=== PATIENT | female | born 1955 | race Caucasian/White ===

== ENCOUNTER 2021-04-26 09:20 | Emergency (ER) | payer MEDICAID, SELFPAY ==
[2021-04-26 09:23] VITALS: PULSE 80; RESP 19; TEMP 37.1; O2SAT 94; BMI 32.8
--- NOTE | 2021-04-26 09:42 | ED_ITS ---
HPI - Extremity Problem General: Chief complaint: Extremity Injury, Upper Stated complaint: FALL ARM PAIN Time Seen by Provider: 04/26/21 09:34 Source: patient Mode of arrival: EMS Limitations: no limitations History of Present Illness: HPI Narrative: Patient states while waiting to check out at [facility] her right foot slipped, causing her to fall injuring her right arm. Unable to move arm due to pain MD Complaint: extremity pain and joint pain Onset (ago): minute(s) Pain Consistency: constant Location: right Severity scale (1-10): 6 Quality: sharp Radiation: none Relieving factors: nothing Exacerbating factors: exertion and palpation Associated symptoms: Reports no associated symptoms Context: immobilization Review of Systems General: Reports: 10 or more systems reviewed and unremarkable except in HPI and below Musc: Reports: extremity pain, joint pain and limited range of motion Physical Exam Const: COMMON NORMALS: no acute distress GENERAL APPEARANCE: cooperative, comfortable and well kempt HENMT: COMMON NORMALS: normocephalic and atraumatic HEAD & SCALP: normal to inspection, normocephalic and atraumatic Eye: COMMON NORMALS: Equal, round and reactive pupils present GENERAL EYE: appearance normal, both eyes and all related structures PUPIL: Yes Equal, round and reactive pupils present Neck/C-Spine: COMMON NORMALS: full ROM, no lymphadenopathy and no JVD Lymph: LYMPHATIC: no lymphadenopathy noted Resp: COMMON NORMALS: normal respiratory effort, No retractions, No use of accessory muscles and clear to auscultation bilaterally EFFORT & INSPECTION: Yes able to speak in complete sentences AUSCULTATION: clear to auscultation bilaterally Cardio: COMMON NORMALS: no JVD, regular rate, S1 normal heart sound present and S2 normal heart sound present RATE: regular rate HEART SOUNDS: S1 no rmal heart sound present and S2 normal heart sound present GI: COMMON NORMALS: Normal to inspection, nondistended, normoactive bowel sounds present Extremity: GENERAL: Yes normal exam except as noted RIGHT UPPER EXTREMITY: Yes shoulder joint (Unable to move due to pain) Right shoulder: Yes Right shoulder joint ROM exam and Yes Right shoulder joint neurovascular exam (intact) and Yes elbow joint Right elbow: Yes ROM (Tenderness) and Yes neurovascular exam (intact) Psych: APPEARANCE: Yes well kempt Skin: COMMON NORMALS: no rashes or lesions noted GENERAL SKIN EXAM: no rashes or lesions noted Course ED course: Arrived via EMS, recently shopping at [employer] while waiting for checkout slipped falling on right shoulder causing pain to the humerus, shoulder, and elbow. Full range of motion of wrist without pain Reevaluation(s): Reevaluation #1: Discussed case with Dr. Spears patient to follow-up in office place sling until evaluated in office Time: 11:26 Vital Signs: Vital signs: Vital Signs Temperature 98.7 F 04/26/21 09:23 Pulse Rate 80 04/26/21 09:23 Respiratory Rate 19 H 04/26/21 09:23 Pulse Oximetry 94 04/26/21 09:23 MDM - Extremity (Nontraumatic) Imaging Data^: Xray Ortho: Radiologist's impression: Niki Ortiz[address] [place] [address] [place], [place] [address] ReportSigned Patient: Yen Ansari #: [id number]: 1955cct#:[id number]/Sex: 66 / FADM Date: 04/26/21Loc: ERRoom/Bed:Attending Dr: Ordering Provider/Ordering MD: Candice Gayle Date of Service: 04/26/21 Procedure(s): [place] [address] Accession Number(s): [id number] Report Number: [id number] PROCEDURE INFORMATION: Exam: XR Right Humerus Exam date and time: 04/26/2021 9:44 AM Age: 66 years old Clinical indication: Injury or trauma; Fall; Blunt trauma (contusions or hematomas); Arm, upper; Right TECHNIQUE: Imaging protocol: XR Right humerus. Views: 2 or more views. Total images: 2 COMPARISON: CR (CHEST, ) 04/26/2021 10:10 AM FINDINGS: Bones/joints: Comminuted fracture of the proximal right humerus felt to be involving the surgical neck and greater tuberosity. No additional fracture, subluxation, or dislocation detected. Lungs: Small dense nodule in the right mid lung felt to represent a granuloma. Soft tissues: Normal. XR/[place] [id number] IMPRESSION: Comminuted fracture of the proximal right humerus felt to be involving the surgical neck and greater tuberosity. Radiation Dose CTDIVOL = (mGy): DLP = (mGy-cm) Dictated By:Kirk Sapp MDSigned By:Kirk Sapp MDSigned Date/Time:04/26/21 1115DD/ 0944 Discharge Plan Discharge Patient Disposition: Home Clinical Impression: Fracture, humerus, head Qualifiers: Encounter type: initial encounter Fracture type: closed Laterality: right Qualified Code(s): S42.291A - Other displaced fracture of upper end of right humerus, initial encounter for closed fracture Condition: Stable Prescriptions: New hydrocodone-acetaminophen 5-325 mg tablet 1 tab PO Q4H 5 Days Qty: 30 RF: 0 Discharge Orders: Discharge ED (Routine); Ordered 04/26/21 Ordered By: Candice Gayle Referrals: Marine Palomares MD [Primary Care Provider] - Armando Spears DO [Physician] - 1-3 days Discharge Diet: Usual diet Discharge Activity: Limit activity as instructed Patient Instructions: Opioid Safety Coding Level of Care Code ED Fabric Worker Foreman for Chg Fwd Exam Comprehensive
--- NOTE | 2021-04-26 09:44 | XRR_ITS ---
PROCEDURE INFORMATION: Exam: XR Right Elbow Exam date and time: 04/26/2021 9:44 AM Age: 66 years old Clinical indication: Injury or trauma; Fall; Blunt trauma (contusions or hematomas); Elbow; Right TECHNIQUE: Imaging protocol: XR Right elbow. Views: 3 or more views. Total images: 3 COMPARISON: CR (UP EXM, ) 04/26/2021 10:19 AM FINDINGS: Bones/joints: Moderate marginal osteophytes are noted. No acute fracture nor subluxation. No osseous erosion nor periosteal reaction. Soft tissues: Normal. XR/XR elbow RT min 3V* [id number] IMPRESSION: No acute osseous pathology. Radiation Dose CTDIVOL = (mGy): DLP = (mGy-cm)
--- NOTE | 2021-04-26 09:44 | XRR_ITS ---
PROCEDURE INFORMATION: Exam: XR Right Shoulder Exam date and time: 04/26/2021 9:44 AM Age: 66 years old Clinical indication: Injury or trauma; Fall; Blunt trauma (contusions or hematomas); Shoulder; Right TECHNIQUE: Imaging protocol: XR Right shoulder. Views: 2 or more views. Total images: 3 COMPARISON: No relevant prior studies available. FINDINGS: Bones/joints: Comminuted fracture of the proximal right humerus involving the surgical neck and greater tuberosity. No additional fracture, subluxation, or dislocation detected. Lungs: Nodular density in the right mid lung felt to represent a granuloma. Soft tissues: Normal. XR/XR shoulder RT min 2V* [id number] IMPRESSION: Comminuted fracture of the proximal right humerus involving the surgical neck and greater tuberosity. Radiation Dose CTDIVOL = (mGy): DLP = (mGy-cm)
--- NOTE | 2021-04-26 11:30 | XRR_ITS ---
PROCEDURE INFORMATION: Exam: XR Right Knee Exam date and time: 04/26/2021 11:30 AM Age: 66 years old Clinical indication: Injury or trauma; Fall; Blunt trauma; Knee; Right TECHNIQUE: Imaging protocol: XR Right knee. Views: 3 views. Total images: 3 COMPARISON: No relevant prior studies available. FINDINGS: Bones/joints: Nondisplaced fracture involving the proximal aspect of the right fibula. No additional fracture, subluxation, or dislocation detected. Soft tissues: Normal. XR/XR knee RT 3V* [id number] IMPRESSION: Nondisplaced fracture involving the proximal aspect of the right fibula. Radiation Dose CTDIVOL = (mGy): DLP = (mGy-cm)
[2021-04-26] MEDS: HYDROcodone-acetaminophen 5-325 mg Tablet 1 TAB PO (11:53)
[2021-04-26 12:05] VITALS: RESP 17; O2SAT 98
--- NOTE | 2021-04-26 13:49 | ED_ITS ---
HPI - Extremity Problem General: Chief complaint: Extremity Injury, Upper Stated complaint: FALL ARM PAIN Time Seen by Provider: 04/26/21 09:34 Source: patient Mode of arrival: EMS Limitations: no limitations History of Present Illness: Pain Consistency: constant Location: right Severity scale (1-10): 6 Quality: sharp Relieving factors: nothing Exacerbating factors: exertion and palpation Review of Systems General: Reports: 10 or more systems reviewed and unremarkable except in HPI and below Musc: Reports: joint pain and limited range of motion Physical Exam Const: COMMON NORMALS: no acute distress GENERAL APPEARANCE: cooperative, comfortable and well kempt HENMT: COMMON NORMALS: normocephalic and atraumatic HEAD & SCALP: normal to inspection, normocephalic and atraumatic Eye: COMMON NORMALS: Equal, round and reactive pupils present GENERAL EYE: appearance normal, both eyes and all related structures PUPIL: Yes Equal, round and reactive pupils present Neck/C-Spine: COMMON NORMALS: full ROM, no lymphadenopathy and no JVD Lymph: LYMPHATIC: no lymphadenopathy noted Resp: COMMON NORMALS: normal respiratory effort, No retractions, No use of accessory muscles and clear to auscultation bilaterally EFFORT & INSPECTION: Yes able to speak in complete sentences AUSCULTATION: clear to auscultation bilaterally Cardio: COMMON NORMALS: no JVD, regular rate, S1 normal heart sound present and S2 normal heart sound present RATE: regular rate HEART SOUNDS: S1 normal heart sound present and S2 normal heart sound present GI: COMMON NORMALS: Normal to inspection, nondistended, normoactive bowel sounds present Extremity: GENERAL: Yes normal exam except as noted RIGHT UPPER EXTREMITY: Yes shoulder joint (Unable to move related to injury from fall.) RIGHT LOWER EXTREMITY: Yes knee joint Right knee: Yes palpation (tenderness upon palpation.), Yes ROM (full) and Yes neurovascular exam (intact) Psych: APPEARANCE: Yes well kempt Skin: COMMON NORMALS: no rashes or lesions noted, no wounds and turgor normal GENERAL SKIN EXAM: no rashes or lesions noted and turgor normal Course Vital Signs: Vital signs: Vital Signs Temperature 98.7 F 04/26/21 09:23 Pulse Rate 80 04/26/21 09:23 Respiratory Rate 17 04/26/21 12:05 Pulse Oximetry 98 04/26/21 12:05 MDM - Extremity (Nontraumatic) MDM Narrative: Medical decision making narrative: Patient departed without receiving full evaluation from knee x-ray as she did not want to wait with her family any longer. Reviewed x-ray with patient family is bringing her back to be splinted for nondisplaced fracture involving proximal aspect of the right fibula patient is to be nonweightbearing as discussed. She will follow up with Dr. Spears next week Imaging Data^: Xray Ortho: Radiologist's impression: [address] [id number] ReportSigned Patient: Yen Ansari #: [id number]: 1955cct#:[id number]/Sex: 66 / FADM Date: 04/26/21Loc: ERRoom/Bed:Attending Dr: Ordering Provider/Ordering MD: Candice Gayle Date of Service: 04/26/21 Procedure(s): XR knee RT 3V* [id number] Accession Number(s): [id number] Report Number: [id number] PROCEDURE INFORMATION: Exam: XR Right Knee Exam date and time: 04/26/2021 11:30 AM Age: 66 years old Clinical indication: Injury or trauma; Fall; Blunt trauma; Knee; Right TECHNIQUE: Imaging protocol: XR Right knee. Views: 3 views. Total images: 3 COMPARISON: No relevant prior studies available. FINDINGS: Bones/joints: Nondisplaced fracture involving the proximal aspect of the right fibula. No additional fracture, subluxation, or dislocation detected. Soft tissues: Normal. XR/XR knee RT 3V* [id number] IMPRESSION: Nondisplaced fracture involving the proximal aspect of the right fibula. Radiation Dose CTDIVOL = (mGy): DLP = (mGy-cm) Dictated By:Kirk Sapp MDSigned By:Kirk Sapp MDSigned Date/Time:04/26/21 1159DD/ 1130 Discharge Plan Discharge Patient Disposition: Home Clinical Impression: Fracture, humerus, head Qualifiers: Encounter type: initial encounter Fracture type: closed Laterality: right Qualified Code(s): S42.291A - Other displaced fracture of upper end of right humerus, initial encounter for closed fracture Fracture, fibula Qualifiers: Encounter type: initial encounter Fibula location: proximal Fracture type: closed Laterality: right Condition: Stable Prescriptions: New hydrocodone-acetaminophen 5-325 mg tablet 1 tab PO Q4H 5 Days Qty: 30 RF: 0 Discharge Orders: Discharge ED (Routine); Ordered 04/26/21 Ordered By: Candice Gayle Referrals: Marine Palomares MD [Primary Care Provider] - Armando Spears DO [Physician] - 1-3 days Discharge Diet: Usual diet Discharge Activity: Limit activity as instructed Patient Instructions: Opioid Safety Coding Level of Care Code ED Eye Glass Frame Polisher for Chg Fwd Exam Comprehensive
--- NOTE | 2021-04-26 16:08 | PC.NURSE ---
Pt returned to ED d/t being discharged prior to having RLE X-ray, she returns for splinting d/t non-displaced fibular fx RLE. Posterior long leg splint applied. Order placed by Candice Gayle NP for home wheelchair, which was delivered to ED. This RN assisted pt and her to the car. Pt demonstrates understanding of use of wheelchair, not bearing weight on splinted leg, and prompt f/u with ortho.
--- NOTE | 2021-04-27 10:52 | DCPLANNER ---
regulatory process manager had message to schedule a follow up appointment for patient with ortho. regulatory process manager called the ortho clinic, spoke with Alyce, gave clinic patients information. regulatory process manager was told that patients information would be printed and reviewed. Clinic will call patient with appointment information.
--- NOTE | 2021-04-30 07:42 | DCPLANNER ---
Patient has a follow up appointment scheduled for , April 30, 2021 at 8:00 with MK Bird at [facility]. Clinic will call patient with appointment information.
--- NOTE | 2021-05-21 13:58 | DCPLANNER ---
Patient had a follow up appointment scheduled with ortho - patient did attend appointment.
== END 2021-04-26 12:07 | disposition home or self-care (01) ==
PROVIDERS: Emergency Provider Nurse Practitioner Family; PCP Internal Medicine
DX: S42.291A Other displaced fracture of upper end of right humerus, initial encounter for closed fracture (principal); S82.831A Other fracture of upper and lower end of right fibula, initial encounter for closed fracture; W01.0XXA Fall on same level from slipping, tripping and stumbling without subsequent striking against object, initial encounter; Y92.512 Supermarket, store or market as the place of occurrence of the external cause
CPT/HCPCS: 29505; 73030; 73060; 73080; 73562; 99283

== ENCOUNTER → 2021-04-30 08:04 | Outpatient (BNVA) | payer MEDICAID, SELFPAY | PROVIDERS: PCP Internal Medicine; Referring Provider Internal Medicine; Visit Provider Physician Assistant | DX: S42.291D Other displaced fracture of upper end of right humerus, subsequent encounter for fracture with routine healing (principal); M25.571 Pain in right ankle and joints of right foot; X58.XXXD Exposure to other specified factors, subsequent encounter | CPT/HCPCS: 73030; 73610 ==

== ENCOUNTER → 2021-06-02 13:38 | Outpatient (BNVA) | payer MEDICAID, SELFPAY | PROVIDERS: PCP Internal Medicine; Visit Provider Physician Assistant | DX: S82.491D Other fracture of shaft of right fibula, subsequent encounter for closed fracture with routine healing (principal); X58.XXXD Exposure to other specified factors, subsequent encounter | CPT/HCPCS: 73060; 73590 ==

== ENCOUNTER 2021-06-10 09:13 | Outpatient (RCR) | payer SELFPAY | END 2021-06-22 23:59 | disposition home or self-care (01) | LOC: SPT 09:13 | PROVIDERS: PCP Internal Medicine; Referring Provider Physician Assistant; Visit Provider Physician Assistant | DX: S42.201D Unspecified fracture of upper end of right humerus, subsequent encounter for fracture with routine healing (principal); X58.XXXD Exposure to other specified factors, subsequent encounter | CPT/HCPCS: 97110; 97162 ==

== ENCOUNTER 2021-06-23 06:00 | Outpatient (RCR) | payer SELFPAY | END 2021-07-10 23:00 | disposition home or self-care (01) | LOC: SPT 06:00 | PROVIDERS: PCP Internal Medicine; Referring Provider Physician Assistant; Visit Provider Physician Assistant | DX: S42.201D Unspecified fracture of upper end of right humerus, subsequent encounter for fracture with routine healing (principal); X58.XXXD Exposure to other specified factors, subsequent encounter | CPT/HCPCS: 97110 ==

== ENCOUNTER → 2021-07-02 09:40 | Outpatient (BNVA) | payer MEDICAID, SELFPAY | PROVIDERS: PCP Internal Medicine; Visit Provider Physician Assistant | DX: S82.831A Other fracture of upper and lower end of right fibula, initial encounter for closed fracture (principal); S42.201A Unspecified fracture of upper end of right humerus, initial encounter for closed fracture; X58.XXXA Exposure to other specified factors, initial encounter | CPT/HCPCS: 73060 ==

== ENCOUNTER 2021-12-27 08:37 | Emergency (ER) | payer MEDICAID, SELFPAY ==
[2021-12-27 08:42] VITALS: BP 207/135; PULSE 77; RESP 16; TEMP 36.8; O2SAT 98; BMI 33.6
--- NOTE | 2021-12-27 08:53 | ED_ITS ---
Documented by User: MK Chambers 12/27/21 10:30 HPI - General Adult General: Chief complaint: General Medical Stated complaint: high blood pressure Time Seen by Provider: 12/27/21 08:38 Source: patient Mode of arrival: ambulatory Limitations: no limitations History of Present Illness: Patient is a nice 66-year-old female who presents to ED today with a complaint of elevated blood pressures. Patient states she checked her blood pressure randomly at [facility] and found it was 210 systolic. She states she was checking her blood pressure again this morning and states it was 215/120. Patient states she does not routinely check her blood pressures at home so does not know what a normal pressure is for her. She does take metoprolol 50 mg twice daily and lisinopril-HCTZ 20mg/12.5mg daily for blood pressure. Her PCP is Dr. Palomares. Patient is not complaining of visual changes, headache, chest pain, shortness of breath, difficulty breathing, palpitations, or any other complaints at this time. She states she feels like her normal self. Onset (ago): day(s) (noticed yesterday) Associated symptoms: Deny chest pain, dyspnea, headache(s), malaise, nausea, rash, palpitations, syncope or vomiting Treatments prior to arrival: none Review of Systems Const: Denies: fever(s), chills, body aches, fatigue or malaise Eyes: Denies: change in vision, blurry vision, floaters or seeing flashes Card: Denies: chest pain, palpitations, irregular heart rhythm, edema, swelling of feet/ankles, lightheadedness, syncope, pre-syncope, dyspnea on exertion, orthopnea, leg pain with exertion or acrocyanosis Resp: Denies: dyspnea GI: Denies: abdominal pain, nausea or vomiting : Denies: flank pain, oliguria or hematuria Musc: Denies: neck pain, back pain, extremity pain or joint pain Skin/Breast: Denies: rash Neuro: Denies: headache(s), numbness in extremities, weakness in extremities, sensory changes, lack of coordination, difficulty walking or dizziness PFSH ED PFSH: Social History Smoking and tobacco status: never smoked Physical Exam Const: COMMON NORMALS: no acute distress, patient oriented x3, no limitations and alert GENERAL APPEARANCE: cooperative NUTRITIONAL APPEARANCE: overweight ORIENTATION/CONSCIOUSNESS: Yes awake, Yes oriented to person, Yes oriented to place and Yes oriented to time HENMT: COMMON NORMALS: normocephalic and atraumatic HEAD & SCALP: normal to inspection, normocephalic and atraumatic Eye: GENERAL EYE: appearance normal, both eyes and all related structures Resp: COMMON NORMALS: normal respiratory effort and clear to auscultation bilaterally AUSCULTATION: clear to auscultation bilaterally Cardio: COMMON NORMALS: regular rate and regular rhythm RATE: regular rate RHYTHM: regular rhythm GI: COMMON NORMALS: Normal to inspection, nondistended, normoactive bowel sounds present, Soft to palpation, non-tender and no masses PALPATION: Yes Soft to palpation Extremity: COMMON NORMALS: normal to inspection, capillary refill normal, no joint enlargement, no clubbing, cyanosis or edema, no calf tenderness and no pedal edema GENERAL: Yes normal exam except as noted Neuro: HUY COMA SCALE: document GCS findings [place] coma scale eye opening: Spontaneous [place] coma scale verbal response: Orientated Huy coma scale motor response: Obey commands [place] coma scale total score: 15 COMMON NORMALS: patient oriented x3, CN's II-XII intact bilaterally, moves all extremities, no focal motor deficits, no sensory deficits noted and gait normal SENSORIUM/ORIENTATION: Yes alert, Yes oriented to person, Yes oriented to place and Yes oriented to time Skin: COMMON NORMALS: no rashes or lesions noted GENERAL SKIN EXAM: no rashes or lesions noted Course Vital Signs: Vital signs: Vital Signs Temperature 98.3 F 12/27/21 08:42 Pulse Rate 75 12/27/21 10:20 Respiratory Rate 18 12/27/21 10:20 Blood Pressure 188/98 12/27/21 10:20 Pulse Oximetry 95 12/27/21 10:20 Oxygen Delivery Me thod 12/27/21 10:[address] [facility] - General Adult Medical Decision Making Patient here with asymptomatic hypertension. Blood pressure 207/135 upon arrival. She takes metoprolol and lisinopril?HCTZ for hypertension but reportedly does not take her blood pressures at home. Blood work here shows a normal CBC. Her CMP shows a very minor elevation in her creatinine at 1.0. Blood pressure trending down after medications given here. At this time I will increase her metoprolol to 75 mg twice daily and place her on 10 mg of amlodipi ne. Given she keep a blood pressure log and follow-up with primary care within a week or so so they can titrate medications based on response. Strict return to ED precautions given. Lab Data : 12/27/21 09:00 12/27/21 09:00 Laboratory Results WBC 6.3 10^3/uL (4.0-10.0) 12/27/21 09:00 RBC 4.89 10^6/uL (4.1-5.3) 12/27/21 09:00 Hgb 13.7 g/dL (11.5-15.3) 12/27/21 09:00 Hct 43.7 % (37.0-47.0) 12/27/21 09:00 MCV 89.4 fl (81-99) 12/27/21 09:00 MCH 28.0 pg (28.0-34.0) 12/27/21 09:00 MCHC 31.4 g/dL (30.0-36.0) 12/27/21 09:00 RDW 16.2 % (12.1-15.1) H 12/27/21 09:00 Plt Count 248 10^3/cmm (130-400) 12/27/21 09:00 MPV 10.4 fL (7.4-10.4) 12/27/21 09:00 Neut % (Auto) 66.6 % 12/27/21 09:00 Lymph % (Auto) 20.0 % 12/27/21 09:00 [place] % (Auto) 6.3 % 12/27/21 09:00 Eos % (Auto) 5.6 % 12/27/21 09:00 Baso % (Auto) 1.0 % 12/27/21 09:00 Neut # (Auto) 4.20 10^3/uL (1.8-7.7) 12/27/21 09:00 Lymph # (Auto) 1.3 10^3/uL (0.8-4.8) 12/27/21 09:00 [place] # (Auto) 0.4 10^3/uL (0.2-0.9) 12/27/21 09:00 Eos # (Auto) 0.4 10^3/uL (0.0-0.8) 12/27/21 09:00 Baso # (Auto) 0.1 10^3/uL (0.0-0.1) 12/27/21 09:00 Nucleated RBC % (auto) 0 % 12/27/21 09:00 Nucleated RBCs # 0.0 /100WBC 12/27/21 09:00 Sodium 141 mmol/L (136-145) 12/27/21 09:00 Potassium 4.2 mmol/L (3.5-5.1) 12/27/21 09:00 Chloride 102 mmol/L (98-107) 12/27/21 09:00 Carbon Dioxide 29 mmol/L (22-29) 12/27/21 09:00 Anion Gap 14.2 (5-19) 12/27/21 09:00 BUN 20 mg/dL (8-23) 12/27/21 09:00 Creatinine 1.0 mg/dL (0.5-0.9) H 12/27/21 09:00 GFR Calculation 55.8 mL/min (90-130) L 12/27/21 09:00 Glucose 122 mg/dL (65-115) H 12/27/21 09:00 Calculated Osmolality 296 mOsm/kg (285-295) H 12/27/21 09:00 Calcium 10.2 mg/dL (8.5-10.5) 12/27/21 09:00 Total Bilirubin 0.5 mg/dL (0.15-1.2) 12/27/21 09:00 AST 34 U/L (0-32) H 12/27/21 09:00 ALT 20 U/L (0-33) 12/27/21 09:00 Alkaline Phosphatase 71 IU/L (35-105) 12/27/21 09:00 Total Protein 7.9 g/dL (6.6-8.7) 12/27/21 09:00 Albumin 4.9 g/dL (3.5-5.2) 12/27/21 09:00 Globulin 3.0 g/dL (1.3-4.6) 12/27/21 09:00 Urine Color Yellow (Yellow) 12/27/21 09:00 Urine Appearance Cloudy (CLEAR) 12/27/21 09:00 Urine pH 5 (5-7) 08/07/22 09:00 Ur Specific [place] 1.025 (1.005-1.030) 12/27/21 09:00 Urine Protein 1+ (Negative) H 12/27/21 09:00 Urine Glucose (UA) Norm (Normal) 12/27/21 09:00 Urine Ketones 1+ (Negative) H 12/27/21 09:00 Urine Blood Trace (Negative) H 12/27/21 09:00 Urine Nitrate Negative (Negative) 12/27/21 09:00 Urine Bilirubin 1+ (Negative) H 12/27/21 09:00 Urine Urobilinogen Norm mg/dL (Negative) 12/27/21 09:00 Ur Leukocyte Esterase 2+ (Negative) H 12/27/21 09:00 Urine RBC 0-4 /hpf (0-2) H 12/27/21 09:00 Urine WBC 5-10 /hpf (0-5) H 12/27/21 09:00 Ur Squamous Epith Cells 10-15 /hpf (0-5) H 12/27/21 09:00 Ur Transition Epith Cell 5-10 /hpf 12/27/21 09:00 Amorphous Sediment Not Reportable 12/27/21 09:00 Urine Bacteria 1+ /hpf (NONE) H 12/27/21 09:00 Urine Mucus 1+ /hpf 12/27/21 09:00 Discharge Plan Discharge Patient Disposition: Home Clinical Impression: Asymptomatic hypertension Condition: Stable Prescriptions: New metoprolol tartrate 75 mg tablet 75 mg PO BID Qty: 60 0RF amlodipine 10 mg tablet 10 mg PO DAILY Qty: 30 0RF Discontinued metoprolol tartrate 50 mg tablet 50 mg PO Q12H No Action metformin 1,000 mg tablet 1,000 mg PO BID lisinopril-hydrochlorothiazide 20-12.5 mg tablet 1 tab PO DAILY Dexilant 30 mg capsule,biphase delayed releas 30 mg PO DAILY Victoza 3-Fernando 0.6 mg/0.1 mL (18 mg/3 mL) pen injector 1.2 mg SUBCUT Q24H Discharge Orders: Discharge ED (Routine); Ordered 12/27/21 Ordered By: Zaida Patel Referrals: Marine Palomares MD [Primary Care Provider] - Activity Restrictions/Additional Instructions: You need to begin keeping a blood pressure log and record blood pressures twice daily over the next 1 to 2 weeks and follow-up with your primary care provider so that they may make any needed blood pressure medication adjustments based on these readings. Return to the emergency department immediately for severe headache, visual changes, chest pain, shortness of breath, difficulty breathing, severe abdominal or back pains, or any other concerns you may have. Coding Level of Care Code ED Engraver for Chg Fwd Exam Comprehensive Documented by User: Nico Renteria DO 12/28/21 20:26 HPI - General Adult General: Chief complaint: General Medical Stated complaint: high blood pressure Time Seen by Provider: 12/27/21 08:38 [facility] ED PFSH: Social History Smoking and tobacco status: never smoked Physical Exam Neuro: HUY COMA SCALE: document GCS findings [place] coma scale total score: 15 Course Vital Signs: Vital signs: Vital Signs Temperature 98.3 F 12/27/21 08:42 Pulse Rate 75 12/27/21 10:20 Respiratory Rate 18 12/27/21 10:20 Blood Pressure 188/98 12/27/21 10:20 Pulse Oximetry 95 12/27/21 10:20 Oxygen Delivery Me thod 12/27/21 10:20 MDM - General Adult Medical Decision Making Patient here with asymptomatic hypertension. Blood pressure 207/135 upon arrival. She takes metoprolol and lisinopril?HCTZ for hypertension but reportedly does not take her blood pressures at home. Blood work here shows a normal CBC. Her CMP shows a very minor elevation in her creatinine at 1.0. Blood pressure trending down after medications given here. At this time I will increase her metoprolol to 75 mg twice daily and place her on 10 mg of amlodipine. Given she keep a blood pressure log and follow-up with primary care within a week or so so they can titrate medications based on response. Strict return to ED precautions given. Chart reviewed and patient discussed with midlevel. Agree with assessment and plan. Medical Records I reviewed the patient's medical records. Lab Data I reviewed the patient's lab results. : 12/27/21 09:00 12/27/21 09:00 Laboratory Results WBC 6.3 10^3/uL (4.0-10.0) 12/27/21 09:00 RBC 4.89 10^6/uL (4.1-5.3) 12/27/21 09:00 Hgb 13.7 g/dL (11.5-15.3) 12/27/21 09:00 Hct 43.7 % (37.0-47.0) 12/27/21 09:00 MCV 89.4 fl (81-99) 12/27/21 09:00 MCH 28.0 pg (28.0-34.0) 12/27/21 09:00 MCHC 31.4 g/dL (30.0-36.0) 12/27/21 09:00 RDW 16.2 % (12.1-15.1) H 12/27/21 09:00 Plt Count 248 10^3/cmm (130-400) 12/27/21 09:00 MPV 10.4 fL (7.4-10.4) 12/27/21 09:00 Neut % (Auto) 66.6 % 12/27/21 09:00 Lymph % (Auto) 20.0 % 12/27/21 09:00 [place] % (Auto) 6.3 % 12/27/21 09:00 Eos % (Auto) 5.6 % 12/27/21 09:00 Baso % (Auto) 1.0 % 12/27/21 09:00 Neut # (Auto) 4.20 10^3/uL (1.8-7.7) 12/27/21 09:00 Lymph # (Auto) 1.3 10^3/uL (0.8-4.8) 12/27/21 09:00 [place] # (Auto) 0.4 10^3/uL (0.2-0.9) 12/27/21 09:00 Eos # (Auto) 0.4 10^3/uL (0.0-0.8) 12/27/21 09:00 Baso # (Auto) 0.1 10^3/uL (0.0-0.1) 12/27/21 09:00 Nucleated RBC % (auto) 0 % 12/27/21 09:00 Nucleated RBCs # 0.0 /100WBC 12/27/21 09:00 Sodium 141 mmol/L (136-145) 12/27/21 09:00 Potassium 4.2 mmol/L (3.5-5.1) 12/27/21 09:00 Chloride 102 mmol/L (98-107) 12/27/21 09:00 Carbon Dioxide 29 mmol/L (22-29) 12/27/21 09:00 Anion Gap 14.2 (5-19) 12/27/21 09:00 BUN 20 mg/dL (8-23) 12/27/21 09:00 Creatinine 1.0 mg/dL (0.5-0.9) H 12/27/21 09:00 GFR Calculation 55.8 mL/min (90-130) L 12/27/21 09:00 Glucose 122 mg/dL (65-115) H 12/27/21 09:00 Calculated Osmolality 296 mOsm/kg (285-295) H 12/27/21 09:00 Calcium 10.2 mg/dL (8.5-10.5) 12/27/21 09:00 Total Bilirubin 0.5 mg/dL (0.15-1.2) 12/27/21 09:00 AST 34 U/L (0-32) H 12/27/21 09:00 ALT 20 U/L (0-33) 12/27/21 09:00 Alkaline Phosphatase 71 IU/L (35-105) 12/27/21 09:00 Total Protein 7.9 g/dL (6.6-8.7) 12/27/21 09:00 Albumin 4.9 g/dL (3.5-5.2) 12/27/21 09:00 Globulin 3.0 g/dL (1.3-4.6) 12/27/21 09:00 Urine Color Yellow (Yellow) 12/27/21 09:00 Urine Appearance Cloudy (CLEAR) 12/27/21 09:00 Urine pH 5 (5-7) 12/27/21 09:00 Ur Specific [place] 1.025 (1.005-1.030) 12/27/21 09:00 Urine Protein 1+ (Negative) H 08/07/22 09:00 Urine Glucose (UA) Norm (Normal) 12/27/21 09:00 Urine Ketones 1+ (Negative) H 12/27/21 09:00 Urine Blood Trace (Negative) H 12/27/21 09:00 Urine Nitrate Negative (Negative) 12/27/21 09:00 Urine Bilirubin 1+ (Negative) H 12/27/21 09:00 Urine Urobilinogen Norm mg/dL (Negative) 12/27/21 09:00 Ur Leukocyte Esterase 2+ (Negative) H 12/27/21 09:00 Urine RBC 0-4 /hpf (0-2) H 12/27/21 09:00 Urine WBC 5-10 /hpf (0-5) H 12/27/21 09:00 Ur Squamous Epith Cells 10-15 /hpf (0-5) H 12/27/21 09:00 Ur Transition Epith Cell 5-10 /hpf 12/27/21 09:00 Amorphous Sediment Not Reportable 12/27/21 09:00 Urine Bacteria 1+ /hpf (NONE) H 12/27/21 09:00 Urine Mucus 1+ /hpf 12/27/21 09:00 Discharge Plan Discharge Patient Disposition: Home Clinical Impression: Asymptomatic hypertension Condition: Stable Prescriptions: New metoprolol tartrate 75 mg tablet 75 mg PO BID Qty: 60 0RF amlodipine 10 mg tablet 10 mg PO DAILY Qty: 30 0RF Discontinued metoprolol tartrate 50 mg tablet 50 mg PO Q12H No Action metformin 1,000 mg tablet 1,000 mg PO BID lisinopril-hydrochlorothiazide 20-12.5 mg tablet 1 tab PO DAILY Dexilant 30 mg capsule,biphase delayed releas 30 mg PO DAILY Victoza 3-Fernando 0.6 mg/0.1 mL (18 mg/3 mL) pen injector 1.2 mg SUBCUT Q24H Discharge Orders: Discharge ED (Routine); Ordered 12/27/21 Ordered By: Zaida Patel Referrals: Marine Palomares MD [Primary Care Provider] - Activity Restrictions/Additional Instructions: You need to begin keeping a blood pressure log and record blood pressures twice daily over the next 1 to 2 weeks and follow-up with your primary care provider so that they may make any needed blood pressure medication adjustments based on these readings. Return to the emergency department immediately for severe headache, visual changes, chest pain, shortness of breath, difficulty breathing, severe abdominal or back pains, or any other concerns you may have. Coding Level of Care Code ED Engraver for Chg Fwd Exam Comprehensive
--- NOTE | 2021-12-27 09:11 | PC.NURSE ---
lab specimens sent for processing. Patient only able to void small amount of urine. Ice chips given to patient at this time per her request. Will attempt to obtain another urine sample.
[2021-12-27 09:12] LABS: Basophils # 0.1 10^3/uL (0.0-0.1); Eosinophils # 0.4 10^3/uL (0.0-0.8); Eosinophils % 5.6 %; Hematocrit 43.7 % (37.0-47.0); Hemoglobin 13.7 g/dL (11.5-15.3); Lymphocytes # 1.3 10^3/uL (0.8-4.8); Mean Corpuscular HGB Conc 31.4 g/dL (30.0-36.0); Mean Corpuscular Volume 89.4 fl (81-99); Mean Platelet Volume 10.4 fL (7.4-10.4); Monocytes # 0.4 10^3/uL (0.2-0.9); Monocytes % 6.3 %; Neutrophils % 66.6 %; Nucleated Red Blood Cells % 0 %; Platelet Count 248 10^3/cmm (130-400); Red Blood Count 4.89 10^6/uL (4.1-5.3); Red Cell Distribution Width 16.2 % (12.1-15.1); White Blood Count 6.3 10^3/uL (4.0-10.0)
[2021-12-27] MEDS: amlodipine 10 mg Tablet PO (09:17)
[2021-12-27] MEDS: hyDRALAzine 25 mg Tablet PO (09:18)
[2021-12-27 09:21] VITALS: BP 209/116; PULSE 78; RESP 18; O2SAT 95
[2021-12-27 09:33] LABS: Alanine Aminotransferase 20 U/L (0-33); Albumin Level 4.9 g/dL (3.5-5.2); Alkaline Phosphatase 71 IU/L (35-105); Anion Gap 14.2 (5-19); Aspartate Amino Transferase 34 U/L (0-32); Blood Urea Nitrogen 20 mg/dL (8-23); Calcium 10.2 mg/dL (8.5-10.5); Carbon Dioxide 29 mmol/L (22-29); Chloride 102 mmol/L (98-107); Creatinine Clr Calc Pharmacy 68.1609; Glomerular Filtration Rate 55.8 mL/min (90-130); Glucose 122 mg/dL (65-115); Osmolality Calculated 296 mOsm/kg (285-295); Potassium 4.2 mmol/L (3.5-5.1); Sodium 141 mmol/L (136-145); Total Bilirubin 0.5 mg/dL (0.15-1.2); Total Protein 7.9 g/dL (6.6-8.7); Urine Color Yellow (Yellow)
[2021-12-27 09:34] LABS: Bilirubin Urine 1+ (Negative); Blood Urine Trace (Negative); Glucose Urine UA Norm (Normal); Ketones Urine 1+ (Negative); Leukocyte Esterase Urine 2+ (Negative); Nitrate Urine Negative (Negative); Protein Urine 1+ (Negative); Specific Gravity, Urine 1.025 (1.005-1.030); Urine Appearance Cloudy (CLEAR); Urobilinogen Urine Norm (Negative); pH Urine 5 (5-7)
[2021-12-27 09:35] LABS: Add Urine Culture? Yes; Add Urine Microscopic? YES; Bacteria Urine 1+ /hpf; Mucus Urine 1+ /hpf; RBC Urine 0-4 /hpf (0-2)
[2021-12-27 10:20] VITALS: BP 188/98; PULSE 75; RESP 18; O2SAT 95
== END 2021-12-27 10:32 | disposition home or self-care (01) ==
PROVIDERS: Emergency Provider Physician Assistant; PCP Internal Medicine
DX: I10 Essential (primary) hypertension (principal); Z79.84 Long term (current) use of oral hypoglycemic drugs
CPT/HCPCS: 80053; 81001; 85025; 87086; 99283

== ENCOUNTER 2022-01-21 10:18 | Outpatient (CLI) | payer MEDICARE, MEDICAID, SELFPAY ==
--- NOTE | 2022-01-21 10:25 | MM_ITS ---
WS: [id number] VIEWS: MLO and CC views both breasts. 3D digital tomosynthesis is also included in this exam. Comparison made with prior exam of 02/09/2012, 10/09/2015, 12/19/2017,. Findings: There was no sign of mass, architectural distortion or suspicious calcification in either breast. He terogeneously [place] MM/[place] [id number] Impression: BI-RADS: 2-Benign FOLLOW-UP: 1 Year Follow-up This mammogram was also analyzed by the Computer Aided Detection System R2 Imag e Policy And Planning Manager.
== END 2022-01-21 10:19 | disposition home or self-care (01) ==
PROVIDERS: PCP Internal Medicine; Visit Provider Internal Medicine
DX: Z12.31 Encounter for screening mammogram for malignant neoplasm of breast (principal)
CPT/HCPCS: 77063; 77067

== ENCOUNTER 2022-06-21 08:27 | Outpatient (CLI) | payer MEDICARE, MEDICAID, SELFPAY ==
--- NOTE | 2022-06-21 08:45 | USR_ITS ---
PROCEDURE INFORMATION: Exam: US Duplex Lower Extremity Arteries Exam date and time: 06/21/2022 8:54 AM Age: 67 years old Clinical indication: Pain; Leg, lower; Bilateral; Additional info: Decreased dorsalis pedis pulse TECHNIQUE: Imaging protocol: Real-time ultrasound scan of the arteries of the bilateral lower extremities with 2-D penn scale, color Doppler flow and spectral waveform analysis. Images documented and saved. COMPARISON: CR XR tibia fibula RT 2V [id number] 06/02/2021 1:45 PM FINDINGS: Right common femoral artery: No occlusion or significant stenosis. Normal waveform. Right superficial femoral artery: No occlusion or significant stenosis. Normal waveform. Right popliteal artery: No occlusion or significant stenosis. Normal waveform. Right calf/foot arteries: No occlusion or significant stenosis in the visualized arteries. Normal waveforms. Dorsalis pedis artery is patent. Left common femoral artery: No occlusion or significant stenosis. Normal waveform. Left superficial femoral artery: No occlusion or significant stenosis. Normal waveform. Left popliteal artery: No occlusion or significant stenosis. Normal waveform. Left calf/foot arteries: No occlusion or significant stenosis in the visualized arteries. Normal waveforms. Dorsalis pedis artery is patent. US/[id number] IMPRESSION: No stenosis or occlusion.
== END 2022-06-21 08:28 | disposition home or self-care (01) ==
LOC: RAD 08:33
PROVIDERS: PCP Internal Medicine; Visit Provider Internal Medicine
DX: R09.89 Other specified symptoms and signs involving the circulatory and respiratory systems (principal); M79.662 Pain in left lower leg; M79.661 Pain in right lower leg
CPT/HCPCS: 93925

== ENCOUNTER 2022-09-19 15:40 | Emergency (ER) | payer MEDICARE, MEDICAID, SELFPAY ==
[2022-09-19 15:51] VITALS: BP 193/125; PULSE 68; RESP 18; TEMP 36.7; O2SAT 97
--- NOTE | 2022-09-19 16:01 | XRR_ITS ---
PROCED the URE INFORMATION: Exam: XR Right Foot Exam date and time: 09/19/2022 4:06 PM Age: 67 years old Clinical indication: Injury or trauma; Fall; Blunt trauma; Foot; Right; Additional info: Fall injury, foot pain TECHNIQUE: Imaging protocol: Radiologic exam of the right foot. Views: 3 or more views. COMPARISON: No relevant prior studies available. FINDINGS: Bones/joints: The a comminuted, mildly displaced intra-articular fracture of the base of the 1st metatarsal on the right foot. Nondisplaced intra-articular fracture of the lateral base of the 1st distal phalanx on the right foot. No dislocation. Bones are diffusely osteopenic. Moderate plantar calcaneal bone spur. Soft tissues: Mild soft tissue swelling at the 1st toe and around the 1st metatarsal. No radiopaque foreign body. XR/XR foot RT min 3V* [id number] IMPRESSION: 1. The a comminuted, mildly displaced intra-articular fracture of the base of the 1st metatarsal on the right foot. 2. Nondisplaced intra-articular fracture of the lateral base of the 1st distal phalanx on the right foot. 3. Mild soft tissue swelling at the 1st toe and around the 1st metatarsal. 4. Incidental/nonacute findings are listed in the report.
--- NOTE | 2022-09-19 16:02 | W.ED.FALL ---
HPI - Fall General: Chief Complaint: Fall Stated Complaint: Right foot injury Time Seen by Provider: 09/19/22 15:54 History of Present Illness: Patient is a 67-year-old female comes to the ED with right foot injury. Injury occurred just prior to arrival. Patient says she was walking in the [employer] parking lot and tripped causing her to twist her right foot and she fell down and skinned her right knee. Denies any head trauma, loss of consciousness or any headache. Since fall she has an abrasion to her right knee but denies any knee pain or pain in knee with weightbearing. Her main complaint is right foot pain. She rates the foot pain a 8 out of 10 and its located in the mid foot and medial side of right foot. Mild swelling of the foot as well. Any weightbearing causes worsening pain on foot. Patient is unsure her last tetanus. Associated symptoms-after fall: Denies abdominal pain, chest pain, headache(s), hematuria or neck pain Review of Systems Const: Denies: fever(s), chills or fatigue Eyes: Denies: change in vision or eye discomfort ENMT: Denies: throat pain, odynophagia, nasal discharge or nasal congestion Card: Denies: chest pain, palpitations, edema, swelling of feet/ankles, dyspnea on exertion or orthopnea Resp: Denies: dyspnea, productive cough or non-productive cough GI: Denies: abdominal pain, nausea, vomiting, diarrhea, constipation or hematochezia : Denies: flank pain, dysuria or hematuria Musc: Reports: extremity pain (Right foot) and extremity swelling (Right foot); Denies: neck pain or back pain Skin/Breast: Denies: rash or new lesions Neuro: Denies: headache(s), numbness in extremities or weakness in extremities PFS ED PFSH: Medical History No pertinent family history Surgical History No pertinent past surgical history Social History Smoking and tobacco status: never smoked Physical Exam Const: COMMON NORMALS: no acute distress, patient oriented x3 and alert HENMT: COMMON NORMALS: normocephalic HEAD & SCALP: normocephalic MOUTH: Normal oral and palatal mucosa present THROAT: posterior oropharynx normal and uvula midline Neck/C-Spine: COMMON NORMALS: supple GENERAL: Yes normal visual inspection Resp: COMMON NORMALS: normal respiratory effort, No retractions, No use of accessory muscles and clear to auscultation bilaterally AUSCULTATION: clear to auscultation bilaterally Cardio: COMMON NORMALS: regular rate, regular rhythm, S1 normal heart sound present, S2 normal heart sound present, No gallops present (Cardio), No clicks present (Cardio), No murmurs present (Cardio) and Peripheral pulses 2+ throughout RATE: regular rate RHYTHM: regular rhythm HEART SOUNDS: S1 normal heart sound present and S2 normal heart sound present PERIPHERAL PULSES: Peripheral pulses 2+ throughout GI: COMMON NORMALS: Normal to inspection, nondistended, normoactive bowel sounds present, Soft to palpation, non-tender and no masses PALPATION: Yes Soft to palpation : COMMON NORMALS: Yes no CVA tenderness BLADDER/KIDNEY EXAM: Yes no CVA tenderness Back/Pelvis: COMMON NORMALS: no CVA tenderness Extremity: NARRATIVE EXTREMITY EXAM: Right knee?superficial abrasion on anterior aspect of knee right over patella. She has full range of motion in knee with no pain. Right foot?mild swelling noted. No visible deformity seen. Tenderness to medial side of foot and midfoot region. No visible nail bed or nail damage noted. Neurovascular intact distally. Neuro: COMMON NORMALS: patient oriented x3 SENSORIUM/ORIENTATION: Yes alert GAIT: Yes Normal gait present Skin: NARRATIVE SKIN EXAM: Right knee?patient has superficial abrasion. No active bleeding or foreign body seen. GENERAL SKIN EXAM: dry skin Course Vital Signs: Vital signs: Vital Signs Temperature 98.0 F 09/19/22 15:51 Pulse Rate 68 09/19/22 15:51 Respiratory Rate 18 09/19/22 15:51 Blood Pressure 193/125 09/19/22 15:51 Pulse Oximetry 97 09/19/22 15:51 Oxygen Delivery Me thod Room Air 09/19/22 15:51 MDM - Fall Medical Decision Making Patient is a 67-year-old female comes to the ED with right foot injury. Injury occurred just prior to arrival. Patient says she was walking in the [employer] parking lot and tripped causing her to twist her right foot and she fell down and skinned her right knee. Denies any head trauma, loss of consciousness or any headache. Since fall she has an abrasion to her right knee but denies any knee pain or pain in knee with weightbearing. Her main complaint is right foot pain. Vitals are stable. Right knee?superficial abrasion on anterior aspect of knee right over patella. She has full range of motion in knee with no pain.Right foot?mild swelling noted. No visible deformity seen. Tenderness to medial side of foot and midfoot region. No visible nail bed or nail damage noted. Neurovascular intact distally. X-ray right foot shows first metatarsal proximal head fracture. Patient was given updated tetanus here in the ED. I placed an order with case management for patient be referred to podiatry for follow-up on toe fracture. She was put in a posterior leg splint and discharged home with crutches. She was sent home with a prescription for hydrocodone for pain and Zofran for nausea. Return to ED precautions given. Patient understood and agreed with plan. Imaging Data Xray Ortho: My impression: X-ray right foot shows first metatarsal proximal head fracture. Discharge Plan Discharge Patient Disposition: Home Clinical Impression: Abrasion Metatarsal fracture Qualifiers: Encounter type: initial encounter Metatarsal bone: first Fracture type: closed Fracture alignment: nondisplaced Laterality: right Qualified Code(s): S92.314A - Nondisplaced fracture of first metatarsal bone, right foot, initial encounter for closed fracture Condition: Stable Prescriptions: New ondansetron 4 mg tablet,disintegrating 4 mg PO Q8H PRN (Reason: nausea and vomiting) Qty: 20 0RF No Action metformin 1,000 mg tablet 1,000 mg PO BID lisinopril-hydrochlorothiazide 20-12.5 mg tablet 1 tab PO DAILY Dexilant 30 mg capsule,biphase delayed releas 30 mg PO DAILY Victoza 3-Fernando 0.6 mg/0.1 mL (18 mg/3 mL) pen injector 1.2 mg SUBCUT Q24H metoprolol tartrate 75 mg tablet 75 mg PO BID Qty: 60 0RF amlodipine 10 mg tablet 10 mg PO DAILY Qty: 30 0RF Discharge Orders: Discharge ED (Routine); Ordered 09/19/22 Ordered By: Dane Mercado Referrals: Marine Palomares MD [Primary Care Provider] - Discharge Diet: Regular Discharge Activity: Limit activity as instructed and Use walker/crutches as instructed Patient Instructions: Fractures - Metatarsal, Abrasion (ED), Opioid Safety Activity Restrictions/Additional Instructions: Follow-up with medical provider as directed. Case management should be counting in the next several days to set up an appointment with podiatry for follow-up on toe fracture. Keep splint on and dry and limit weightbearing on right foot. Use crutches to help with ambulation. Take medications as prescribed. Clean abrasion on knee daily with soap and water and then apply triple antibiotic ointment on it and cover with bandage. Return to the ER or your medical provider if condition worsens. Please read and understand discharge instructions. Thank you for choosing [facility] for your healthcare needs today. Please realize this is an emergency room and that we are providing you with a medical screening exam and this may not be complete and all inclusive of all the testing and or work up that you may need to determine your ailment or severity of your illness. It is very important that you follow up as instructed or that you return to the Emergency Department should you have concerns or if your condition changes or worsens in any way. Coding Level of Care Code ED Interpretive Program Coordinator for Blanco Doll
[2022-09-19] MEDS: tetanus-dipt-pertussis 0.5 mL SDV IM (16:20)
[2022-09-19] MEDS: neomycin-poly-bacitracin oint 28 gm 1 APPLIC TOPICAL (16:46)
--- NOTE | 2022-09-19 16:47 | PC.NURSE ---
Right knee wound cleaned with sterile saline, telfa applied, secured with clear dressing. Pt tolerated well, requests tylenol for foot pain. Provided notified
[2022-09-19] MEDS: acetaminophen 500 mg Tablet 1000 MG PO (17:01)
--- NOTE | 2022-09-20 08:24 | DCPLANNER ---
Addendum entered by Rosario Varghese 09/22/22 08:59: Patient had a follow up appointment scheduled with ortho - patient did attend appointment. Original Note: retail merchandising manager had message to schedule a follow up appointment for patient with podiatry. retail merchandising manager sent patients information to the front office staff at podiatry. Patients information will be printed and reviewed. Clinic will call patient with appointment information.
== END 2022-09-19 17:41 | disposition home or self-care (01) ==
PROVIDERS: Emergency Provider Physician Assistant; PCP Internal Medicine
DX: S92.314A Nondisplaced fracture of first metatarsal bone, right foot, initial encounter for closed fracture (principal); S80.211A Abrasion, right knee, initial encounter; W01.0XXA Fall on same level from slipping, tripping and stumbling without subsequent striking against object, initial encounter; Y92.512 Supermarket, store or market as the place of occurrence of the external cause; Z23 Encounter for immunization
CPT/HCPCS: 73630; 90471; 90715; 99283; E0114

== ENCOUNTER 2022-09-20 16:21 | Outpatient (CLI) | payer MEDICARE, MEDICAID, SELFPAY | END 2022-09-20 16:22 | disposition home or self-care (01) | LOC: SPT 16:22 | PROVIDERS: PCP Internal Medicine; Visit Provider Podiatrist Foot & Ankle Surgery | DX: Z46.89 Encounter for fitting and adjustment of other specified devices (principal); S92.312D Displaced fracture of first metatarsal bone, left foot, subsequent encounter for fracture with routine healing; W01.0XXD Fall on same level from slipping, tripping and stumbling without subsequent striking against object, subsequent encounter | CPT/HCPCS: 97760; 99204; L4361 ==

== ENCOUNTER 2022-09-24 08:37 | Day surgery (SDC) | payer MEDICARE, MEDICAID, SELFPAY ==
[2022-09-23 09:14] VITALS: BMI 31.3
[2022-09-24] VITALS (9 sets, daily range): BP systolic 105–153; BP diastolic 64–96; PULSE 58–71; RESP 16–18; TEMP 36.2–36.8; O2SAT 92–98
--- NOTE | 2022-09-24 | XR_ITS ---
WS: [id number] INTRAOPERATIVE TECHNIQUE: 1 Spot fluoroscopic images for intraoperative purposes. FLUOROSCOPY TIME: 5 seconds DLP: 0.108 mgy/cm CLINICAL INFORMATION: NEGRITO PICS COMPARISON: None. FINDINGS: Intraoperative changes plate and screw fixation across the 1st TMT joint XR/XR foot RT 2V [id number] IMPRESSION: Images obtained for intraoperative purposes. foot.
--- NOTE | 2022-09-24 06:12 | W.PM.OPSUD ---
Surgery/Procedure H&P Update DATE OF PROCEDURE: September 24, 2022 DATE H&P PERFORMED: 09/20/22 CHANGES TO PREVIOUS DOCUMENTATION: none PLANNED PROCEDURE: Operation Date: 09/24/22 10:35 Proposed Procedures p Open reduction internal fixation right first metatarsal versus right first tarsometatarsal arthrodesis/96380 versus 99440, S92.311A(Right) - Víctor Majano DPM
[2022-09-24] MEDS: sodium chloride 0.9% 1,000 ML 30 ML IV (09:16)
[2022-09-24] MEDS: pregabalin 150 mg Capsule 300 MG PO (09:17)
[2022-09-24] MEDS: CELEcoxib 200 mg Capsule 400 MG PO (09:17)
[2022-09-24 09:29] LABS: Glucose Point of Care 119 mg/dL (70-110)
--- NOTE | 2022-09-24 09:48 | ANES.PREANE2 ---
Pre-Anesthetic Assessment Height/Weight: Height 1.7 m Weight 90.718 kg Temp Pulse Resp BP Pulse Ox O2 Del Method 97.1 F L 71 18 153/96 98 Room Air 09/24/22 08:50 09/24/22 08:50 09/24/22 08:50 09/24/22 08:50 09/24/22 08:50 09/24/22 09:10 Preop Diagnosis: Right first metatarsal fracture Operation Date: 09/24/22 10:35 Proposed Procedures p Open reduction internal fixation right first metatarsal versus right first tarsometatarsal arthrodesis/94078 versus 30646, S92.311A(Right) - Víctor Majano DPM Familial anesthetic complications: None Was Beta Radha taken within 24 hours: N/A Was Clonidine taken within 24 hours: N/A Last intake: Intake Last Liquid Date 09/23/22 Last Liquid Time 19:00 Last Solid Date 09/23/22 Last Solid Time 19:00 Social No alcohol and No tobacco Exam alert, oriented x 3, clear to auscultation bilaterally and regular rate & rhythm Airway Mallampati: Class IV Dentition: false and other (poor dentition) Comments: Comments: recessed jaw, small mouth opening Pulmonary Sleep Apnea CV/HEM Hypertension GI Gastroesophageal Reflux Disease Metabolic Diabetes Mellitus and Morbid Obesity Anesthetic Plan ASA status: 3 Anesthesia: General and Regional (specify below) Risk of > 500 ml blood loss (7ml/kg in children): No Medications/Allergies Home Medications Medication Instructions Recorded Confirmed Last Taken Type lisinopril 20 1 tab PO DAILY 04/30/21 09/24/22 09/24/22 History mg-hydrochlorothiazide 12.5 mg tablet metformin 1,000 mg tablet 1,000 mg PO BID 04/30/21 09/23/22 Unknown History amlodipine 10 mg tablet 10 mg PO DAILY #30 tabs 12/27/21 09/23/22 09/24/22 Rx metoprolol tartrate 75 mg tablet 75 mg PO BID #60 tabs 12/27/21 09/23/22 09/24/22 Rx ondansetron 4 mg disintegrating 4 mg PO Q8H PRN nausea and 09/19/22 09/23/22 Unknown Rx tablet vomiting #20 tabs Cam Boot #1 ea 09/20/22 09/20/22 Unknown Rx omeprazole 40 mg capsule,delayed mg 09/23/22 09/24/22 History release semaglutide 0.25 mg or 0.5 mg (2 mg SUBCUT 09/23/22 09/19/22 History mg/3 mL) subcutaneous pen injector ([employer]) Allergies Allergy/AdvReac Type Severity Reaction Status Date / Time No Known Allergies Allergy Verified 09/24/22 08:58 Current Medications Generic Name Dose Route Start Last Admin Trade Name Freq PRN Reason Stop Dose Admin Sodium Chloride 1,000 mls @ 30 mls/hr 09/24/22 09:00 09/24/22 09:16 Sodium Chloride 0.9% IV 09/25/22 08:59 30 mls/hr .Q24H JAYDEN Administration PFSH Anesthesia Medical History No pertinent family history Surgical History No pertinent past surgical history Social History Smoking and tobacco status: never smoked Data Anesthesia 09/24/22 09:27 Cardiac Studies: No Data to Display
--- NOTE | 2022-09-24 09:55 | ECG_ITS ---
[facility] Test Date: 2022-09-24 Pat Name: Yen Ansari Department: Room: Gender: Female Filling Hauler: : 1955 Requested By: Víctor Majano Order Number: [id number] Mead MD: Rodrick Louis M.D. Measurements Intervals [place] Rate: 67 P: 44 LA: 205 QRS: -11 QRSD: 111 T: -26 QT: 400 QTc: 423 Interpretive Statements SINUS RHYTHM MODERATE INTRAVENTRICULAR CONDUCTION DELAY [105+ ms QRS DURATION, 80+ ms Q/S IN V1/V2, NO Q AND 60+ ms R IN I/aVL/V5/V6] NONSPECIFIC T-WAVE ABNORMALITY Compared to ECG 06/30/2015 18:53:05 Intraventricular conduction delay now present Ventricular premature complex(es) no longer present Possible ischemia no longer present T-wave abnormality still present Electronically Signed On 09-24-2022 13:27:32 CDT by Rodrick Louis M.D. [id number]
[2022-09-24 09:58] LABS: Anion Gap 15.6 (5-19); Blood Urea Nitrogen 17 mg/dL (8-23); Carbon Dioxide 30 mmol/L (22-29); Chloride 103 mmol/L (98-107); Glomerular Filtration Rate 55.6 mL/min (90-130); Glucose 120 mg/dL (65-115); Osmolality Calculated 301 mOsm/kg (285-295); Potassium 4.6 mmol/L (3.5-5.1); Sodium 144 mmol/L (136-145)
--- NOTE | 2022-09-24 10:09 | P.ANESASSM_ITS ---
Pre-Anesthetic Assessment Height/Weight: Height 1.7 m Weight 90.718 kg Temp Pulse Resp BP Pulse Ox O2 Del Method 97.1 F L 71 18 153/96 98 Room Air 09/24/22 08:50 09/24/22 08:50 09/24/22 08:50 09/24/22 08:50 09/24/22 08:50 09/24/22 09:10 Preop Diagnosis: Right first metatarsal fracture Operation Date: 09/24/22 10:35 Proposed Procedures p Open reduction internal fixation right first metatarsal versus right first tarsometatarsal arthrodesis/37448 versus 39287, S92.311A(Right) - Víctor Majano DPM Familial anesthetic complications: None Was Beta Radha taken within 24 hours: Yes Was Clonidine taken within 24 hours: N/A Last intake: Intake Last Liquid Date 09/23/22 Last Liquid Time 19:00 Last Solid Date 09/23/22 Last Solid Time 19:00 Social No alcohol and No tobacco Exam alert, oriented x 3, clear to auscultation bilaterally and regular rate & rhythm Airway Mallampati: Class II Dentition: full Pulmonary Sleep Apnea CV/HEM Hypertension GI Gastroesophageal Reflux Disease Metabolic Diabetes Mellitus Anesthetic Plan ASA status: 3 Anesthesia: General and Regional (specify below) Risk of > 500 ml blood loss (7ml/kg in children): No Medications/Allergies Home Medications Medication Instructions Recorded Confirmed Last Taken Type lisinopril 20 1 tab PO DAILY 04/30/21 09/24/22 09/24/22 History mg-hydrochlorothiazide 12.5 mg tablet metformin 1,000 mg tablet 1,000 mg PO BID 04/30/21 09/23/22 Unknown History amlodipine 10 mg tablet 10 mg PO DAILY #30 tabs 12/27/21 09/23/22 09/24/22 Rx metoprolol tartrate 75 mg tablet 75 mg PO BID #60 tabs 12/27/21 09/23/22 09/24/22 Rx ondansetron 4 mg disintegrating 4 mg PO Q8H PRN nausea and 09/19/22 09/23/22 Unknown Rx tablet vomiting #20 tabs Cam Boot #1 ea 09/20/22 09/20/22 Unknown Rx omeprazole 40 mg capsule,delayed mg 09/23/22 09/24/22 History release semaglutide 0.25 mg or 0.5 mg (2 mg SUBCUT 09/23/22 09/19/22 History mg/3 mL) subcutaneous pen injector ([employer]) Allergies Allergy/AdvReac Type Severity Reaction Status Date / Time No Known Allergies Allergy Verified 09/24/22 08:58 Current Medications Generic Name Dose Route Start Last Admin Trade Name Freq PRN Reason Stop Dose Admin Sodium Chloride 1,000 mls @ 30 mls/hr 09/24/22 09:00 09/24/22 09:16 Sodium Chloride 0.9% IV 09/25/22 08:59 30 mls/hr .Q24H JAYDEN Administration PFSH Anesthesia Medical History No pertinent family history Surgical History No pertinent past surgical history Social History Smoking and tobacco status: never smoked Data Anesthesia 09/24/22 09:27 BMP 09/24/22 09:27 Sodium 144 Potassium 4.6 Chloride 103 Carbon Dioxide 30 H BUN 17 Creatinine 1.0 H Glucose 120 H Calcium 10.0 Cardiac Studies: No Data to Display
--- NOTE | 2022-09-24 10:16 | W.PM.OPSUD ---
Surgery/Procedure H&P Update DATE OF PROCEDURE: September 24, 2022 DATE H&P PERFORMED: 09/20/22 CHANGES TO PREVIOUS DOCUMENTATION: none PREOP DIAGNOSIS: Right first metatarsal fracture PLANNED PROCEDURE: Operation Date: 09/24/22 10:35 Proposed Procedures p Open reduction internal fixation right first metatarsal versus right first tarsometatarsal arthrodesis/93421 versus 78841, S92.311A(Right) - Víctor Majano DPM
[2022-09-24] MEDS: ceFAZolin 2,000 MG in sodium chloride 0.9% (plus) 50 ML 100 MG IV (10:27)
--- NOTE | 2022-09-24 11:08 | P.OP_ITS ---
Operative Report Date of procedure: September 24, 2022 Pre-op diagnosis: Intra-articular fracture of the right first metatarsal base Post-op diagnosis: Same Procedure done: Right first tarsometatarsal arthrodesis. CPT code 55473 Implants: Lakeshore 28 primary Lapidus plate Lakeshore 28 3.5 mm locking screw x3 Lakeshore 28 3.5 mm nonlocking screw Lakeshore 28 4.0 mm headed screw 3-0 Vicryl 4-0 Vicryl 4-0 nylon Specimens removed/disposition: None Pathology: None Surgeon: Víctor Majano D.P.M. Manager Mechanical: Gil Estimated blood loss: 5 27 IV fluids: 0 Urine output: None Complications: None Brief History: 67 year old female patient here today for evaluation of a right?first metatarsal fracture, and distal phalanx great toe fracture. DOI:09/19/22. Patient states she was walking across [employer] and tripped causing her to fall and twist her right foot. Patient examined and evaluated, findings and treatment options were discussed with patient at length.? Discussed x-ray findings that demonstrated intra- articular fracture at the first metatarsal base with greater than 2 mm of displacement as well as comminuted fracture of the right great toe distal phalanx.? Discussed surgical and conservative management.? Discussed risks and benefits, recovery times of each.? Patient would like to proceed with ORIF of the right first metatarsal versus arthrodesis of the right first tarsometatarsal joint.? Distal phalanx will be managed conservatively.? I reviewed at length with the patient, the risks, potential complications, benefits, alternatives, expectations, and typical outcomes associated with the surgery. The risks and potential complications were explained in detail, including but not limited to infection, wound dehiscence or soft tissue complications, bleeding and hematoma, chronic edema, neuritis or nerve damage producing numbness or chronic pain, CRPS, failure to relieve pain or worsening pain, thick / painful / unsightly scar, limited motion / stiffness, malposition, delayed union, malunion, or nonunion, fracture, reaction to implants, anesthetic complications, venous thromboembolism, and deformity recurrence.? I discussed the notion of no regrets with the patient as it pertains to complications and outcomes. The patient seemed to understand the nature of the proposed care and required convalescence. They asked appropriate questions, answered to their satisfaction. They are aware no guarantees can be made as to a satisfactory outcome and they understand there may be other possible unforeseen complications or outcomes not listed here that will be treated accordingly if they arise. There were no written or implied guarantees given to the patient. They gave informed consent to proceed. 09/24/2022, ORIF of the right first metatarsal versus right first metatarsal and medial cuneiform fusion.? Supine, gurney, 60 minutes, mini C arm, TPS, Lakeshore, popliteal block per anesthesia preoperatively would be appreciated. Procedure: Under mild sedation the patient was brought to the operating room and remained on the gurney in supine position. A timeout was performed. Anesthesia was then administered by the anesthesia service. Right popliteal block also performed per anesthesia preoperatively. Local anesthesia was then injected by myself consisting of 20 cc of Exparel in a grid like fashion subcutaneously at the dorsal, medial and plantar aspect of the right forefoot. Well-padded pneumatic tourniquet was applied to the right ankle. The right lower extremity was then scrubbed, prepped and draped utilizing normal aseptic technique. Right foot was then exanguinated with an Esmarch bandage and the tourniquet was inflated to 250 mmHg. Attention was directed to the dorsal medial aspect of the right first metatarsal base and medial cuneiform articulation. #15 blade was utilized to perform a linear and longitudinal incision medial and parallel to the extensor hallucis longus tendon through skin with dissection carried down through subcutaneous tissue to the layer of periosteum and joint capsule utilizing sharp and blunt technique. Care was taken to retract and preserve neurovascular and tendinous structures. All bleeders were ligated and cauterized as necessary. Gross instability was appreciated at the right first metatarsal base with an intra- articular fracture. Determination was made to perform an arthrodesis as her primary procedure due to the intra-articular nature of the fracture and the gross instability at the first metatarsal base medial cuneiform articulation. The articular surface of the distal aspect of the medial cuneiform and at the base of the proximal first metatarsal was denuded of its articular surface, the incision was irrigated with copious amounts of sterile skin solution and subchondral drilling at the base of the first metatarsal and at the medial cuneiform was performed with a subchondral fenestrating drill bit. The first metatarsal was compressed and held parallel to the second metatarsal followed by a homerun screw provided by Lakeshore 28 this was a 4 mm headed screw with excellent bony apposition and compression noted. Further fixation was performed with a dorsal medial positioning of a primary Lakeshore 28 Lapidus plate with 3.5 mm locking and nonlocking screws with excellent bony apposition and compression noted. Robust stability was appreciated after fixation at the arthrodesis site and excellent reduction of the fracture was appreciated. Intraoperative C arm utilized to confirm placement of hardware, the hardware was excellent placement in all 3 planes not violating adjacent joints. The incision was irrigated with copious amounts of Staticin solution and periosteum was reapproximated utilizing 3-0 Vicryl, subcutaneous tissue was reapproximated utilizing 4-0 Vicryl and skin with 4-0 nylon. The incision site was dressed with Adaptic, sterile 4 x 4's, Kerlix and Pete wrap followed by application of a cam boot to the right lower extremity. Tourniquet was deflated and a prompt hyperemic response was noted to the distal digits of the right foot. Patient tolerated the procedure and anesthesia well and was transferred to the PACU with vital signs stable and vascular status intact. Following a period of postoperative monitoring she will be discharged home. Was given at home care instructions, postoperative follow- up and my cell phone number to contact with any postoperative questions or concerns.
--- NOTE | 2022-09-24 12:24 | ANE.PACU2 ---
Inpatient post-anesthesia follow up: Airway intact: Yes Vital signs: Temperature 98.2 F Pulse Rate 64 Respiratory Rate 16 Blood Pressure 148/88 Pulse Oximetry 92 Oxygen Delivery Me thod Room Air Oxygen Flow Rate 6 Fraction of Inspir ed Oxygen Hydration adequate: Yes Nausea and vomiting: No Pain level: 1 Mental status: Baseline
== END 2022-09-24 12:45 | disposition home or self-care (01) ==
PROVIDERS: PCP Internal Medicine; Visit Provider Podiatrist Foot & Ankle Surgery
PROC: (CPT 28485; principal; 2022-09-24 10:25)
DX: S92.311A Displaced fracture of first metatarsal bone, right foot, initial encounter for closed fracture (principal); S92.421A Displaced fracture of distal phalanx of right great toe, initial encounter for closed fracture; I45.9 Conduction disorder, unspecified; E11.9 Type 2 diabetes mellitus without complications; I10 Essential (primary) hypertension; K21.9 Gastro-esophageal reflux disease without esophagitis; Z79.84 Long term (current) use of oral hypoglycemic drugs; Z79.899 Other long term (current) drug therapy; E66.01 Morbid (severe) obesity due to excess calories; Z68.31 Body mass index [BMI] 31.0-31.9, adult; W01.0XXA Fall on same level from slipping, tripping and stumbling without subsequent striking against object, initial encounter; Y92.481 Parking lot as the place of occurrence of the external cause
CPT/HCPCS: 28730; 36415; 36416; 73620; 76000; 80048; 82962; 93005; C1713; C9290; J0690; J1100; J2250; J2405; J2704; J2795; J3010; J7030

== ENCOUNTER → 2022-09-30 13:49 | Outpatient (BNVA) | payer MEDICARE, MEDICAID, SELFPAY | PROVIDERS: PCP Internal Medicine; Visit Provider Podiatrist Foot & Ankle Surgery | DX: Z98.890 Other specified postprocedural states (principal) | CPT/HCPCS: 99024 ==

== ENCOUNTER → 2022-10-07 13:45 | Outpatient (BNVA) | payer MEDICARE, MEDICAID, SELFPAY | PROVIDERS: PCP Internal Medicine; Visit Provider Podiatrist Foot & Ankle Surgery | DX: Z98.890 Other specified postprocedural states (principal) | CPT/HCPCS: 73630 ==

== ENCOUNTER 2022-10-07 14:41 | Outpatient (CLI) | payer MEDICARE, MEDICAID, SELFPAY | END 2022-10-07 14:42 | disposition home or self-care (01) | LOC: SPT 14:41 | PROVIDERS: PCP Internal Medicine; Visit Provider Podiatrist Foot & Ankle Surgery | DX: Z46.89 Encounter for fitting and adjustment of other specified devices (principal); Z98.890 Other specified postprocedural states | CPT/HCPCS: 97760; 99024; L3031 ==

== ENCOUNTER → 2022-10-20 13:41 | Outpatient (BNVA) | payer MEDICARE, MEDICAID, SELFPAY | PROVIDERS: PCP Internal Medicine; Visit Provider Podiatrist Foot & Ankle Surgery | DX: Z98.890 Other specified postprocedural states (principal) | CPT/HCPCS: 73630; 99024 ==

== ENCOUNTER → 2022-11-11 12:38 | Outpatient (BNVA) | payer MEDICARE, MEDICAID, SELFPAY | PROVIDERS: PCP Internal Medicine; Visit Provider Podiatrist Foot & Ankle Surgery | DX: Z98.890 Other specified postprocedural states (principal) | CPT/HCPCS: 73630; 99024 ==

== ENCOUNTER → 2023-01-13 12:44 | Outpatient (BNVA) | payer MEDICARE, MEDICAID, SELFPAY | PROVIDERS: PCP Internal Medicine; Visit Provider Podiatrist Foot & Ankle Surgery | DX: Z98.890 Other specified postprocedural states (principal); M21.41 Flat foot [pes planus] (acquired), right foot; M21.42 Flat foot [pes planus] (acquired), left foot; E11.42 Type 2 diabetes mellitus with diabetic polyneuropathy | CPT/HCPCS: 73630; 99213 ==

== ENCOUNTER 2023-01-26 12:45 | Outpatient (CLI) | payer MEDICARE, MEDICAID, SELFPAY ==
--- NOTE | 2023-01-26 | MM_ITS ---
WS: [id number] BILATERAL 3D TOMOSYNTHESIS DIGITAL SCREENING MAMMOGRAPHY WITH CAD CLINICAL INFORMATION: SCREENING HISTORY: Screening mammogram. No current complaints. COMPARISON: 2021 TECHNIQUE: Bilateral CC and MLO views. FINDINGS: Scattered fibroglandular densities bilaterally. No suspicious focal mass, asymmetry, calcifications, or architectural distortion. No evidence of malignancy. Incidental punctate and lucent centered calci fications. IMPRESSION: MM/[place] [id number] BI-RADS: 2-Benign FOLLOW UP: 1 Year Follow-up Recommend return to annual screening mammography.
--- NOTE | 2023-01-26 12:52 | XR_ITS ---
WS: [id number] SCREENING DEXA SCAN [place] CLINICAL INFORMATION: ASYMPTOMATIC POSTMENOPAUSAL STATUS COMPARISON: None. FINDINGS: The L1-L4 bone mineral density measures 0.970 g/cm2. This corresponds to a T score score of -1.8 and Z score of -1.2. Left femoral neck bone mineral density measures 0.843 g/cm2. This corresponds to a T score of -1.3 an d Z score of -0.8. Right femoral neck bone mineral density measures 0.841 g/cm2. This corresponds to a T score -1.3of an d Z score of -0.9. Mean femoral neck bone mineral density measures 0.842 g/cm2. This corresponds to a T score of -1.3 an d Z score of -0.8. IMPRESSION: Osteopenia lumbar spine. Osteopenia femoral necks. Patient's FRAX calculated 10 year probability for major osteoporotic fracture is 15.3% and osteoporotic hip fracture is 2.0%.
== END 2023-01-26 12:46 | disposition home or self-care (01) ==
PROVIDERS: PCP Internal Medicine; Visit Provider Internal Medicine
DX: Z12.31 Encounter for screening mammogram for malignant neoplasm of breast (principal); Z13.820 Encounter for screening for osteoporosis; M85.89 Other specified disorders of bone density and structure, multiple sites; Z78.0 Asymptomatic menopausal state
CPT/HCPCS: 77063; 77067; 77080

== ENCOUNTER 2023-02-22 15:18 | Outpatient (CLI) | payer MEDICARE, MEDICAID, SELFPAY | END 2023-02-22 15:19 | disposition home or self-care (01) | LOC: SPT 15:18 | PROVIDERS: PCP Internal Medicine; Visit Provider Podiatrist Foot & Ankle Surgery | DX: Z47.89 Encounter for other orthopedic aftercare (principal) | CPT/HCPCS: L3030 ==

== ENCOUNTER → 2023-04-21 13:09 | Outpatient (BNVA) | payer MEDICARE, MEDICAID, SELFPAY | PROVIDERS: PCP Internal Medicine; Visit Provider Podiatrist Foot & Ankle Surgery | DX: Z98.890 Other specified postprocedural states (principal); M21.41 Flat foot [pes planus] (acquired), right foot; M21.42 Flat foot [pes planus] (acquired), left foot; E11.42 Type 2 diabetes mellitus with diabetic polyneuropathy; Z79.84 Long term (current) use of oral hypoglycemic drugs | CPT/HCPCS: 73630; 99213 ==

== ENCOUNTER 2024-01-31 09:48 | Outpatient (CLI) | payer MEDICARE, SELFPAY ==
--- NOTE | 2024-01-31 09:52 | MM_ITS ---
WS: [id number] BILATERAL 3D TOMOSYNTHESIS DIGITAL SCREENING MAMMOGRAPHY WITH CAD CLINICAL INFORMATION: SCREENING HISTORY: Screening mammogram. No current complaints. COMPARISON: 2022 TECHNIQUE: Bilateral CC and MLO views. FINDINGS: The breasts are composed of heterogeneous fibroglandular density tissue, which can limit the detectio n of small underlying mass lesions. No suspicious mass, asymmetry, calcifications, or architectural d istortion. No evidence of malignancy. A few incidental punctate and lucent centered calcifications. V ascular calcifications. MM/[place] [id number] IMPRESSION: DENSITY:The breasts are heterogeneously dense, which may obscure small masses. BI-RADS: 2 - Benign FOLLOW UP: 1 Year Follow-up Recommend return to annual screening mammography.
== END 2024-01-31 09:49 | disposition home or self-care (01) ==
LOC: RAD 09:48
PROVIDERS: PCP Internal Medicine; Visit Provider Internal Medicine
DX: Z12.31 Encounter for screening mammogram for malignant neoplasm of breast (principal); R92.333 Mammographic heterogeneous density, bilateral breasts; R92.1 Mammographic calcification found on diagnostic imaging of breast
CPT/HCPCS: 77063; 77067

== ENCOUNTER → 2024-03-20 08:56 | Outpatient (BNVA) | payer MEDICARE, SELFPAY | PROVIDERS: PCP Internal Medicine; Visit Provider Podiatrist Foot & Ankle Surgery | DX: E11.42 Type 2 diabetes mellitus with diabetic polyneuropathy (principal); M21.41 Flat foot [pes planus] (acquired), right foot; M21.42 Flat foot [pes planus] (acquired), left foot; M20.41 Other hammer toe(s) (acquired), right foot; M20.42 Other hammer toe(s) (acquired), left foot; L60.3 Nail dystrophy | CPT/HCPCS: 99213 ==

== ENCOUNTER 2025-01-31 10:01 | Outpatient (CLI) | payer OTHER, SELFPAY ==
--- NOTE | 2025-01-31 10:06 | MM_ITS ---
WS: [id number] BILATERAL SCREENING DIGITAL TOMOSYNTHESIS MAMMOGRAM WITH CAD HISTORY: SCREENING COMPARISON: 01/31/2024, 01/26/2023, 01/21/2022 Bilateral CC and MLO views with tomosynthesis and synthetic mammography submitted. Computer aided detection analyzed. Breast composition: There are scattered areas of fibroglandular density. No suspicious masses, microcalcifications or architectural distortion. Benign calcifications in each breast. MM/MM scr tomosynthesis [id number] IMPRESSION: BI-RADS: 2 - Benign. FOLLOW UP: 1 Year Follow-up
== END 2025-01-31 10:02 | disposition home or self-care (01) ==
LOC: RAD 10:04
PROVIDERS: PCP Internal Medicine; Visit Provider Internal Medicine
DX: Z12.31 Encounter for screening mammogram for malignant neoplasm of breast (principal); R92.323 Mammographic fibroglandular density, bilateral breasts
CPT/HCPCS: 77063; 77067

== ENCOUNTER → 2025-03-19 09:20 | Outpatient (BNVA) | payer OTHER, SELFPAY | PROVIDERS: PCP Internal Medicine; Visit Provider Podiatrist Foot & Ankle Surgery | DX: E11.8 Type 2 diabetes mellitus with unspecified complications (principal); E11.42 Type 2 diabetes mellitus with diabetic polyneuropathy; M21.41 Flat foot [pes planus] (acquired), right foot; M21.42 Flat foot [pes planus] (acquired), left foot; M20.41 Other hammer toe(s) (acquired), right foot; M20.42 Other hammer toe(s) (acquired), left foot; L60.3 Nail dystrophy; M19.072 Primary osteoarthritis, left ankle and foot; Z79.84 Long term (current) use of oral hypoglycemic drugs | CPT/HCPCS: 73630; 99213 ==